=== PATIENT | male | born 1975 | race Caucasian/White ===

== ENCOUNTER 2024-10-15 02:03 | Emergency (ER) | payer MEDICARE, SELFPAY ==
[2024-10-15 02:04] VITALS: BP 142/96
[2024-10-15 02:16] VITALS: BMI 28.7
[2024-10-15 02:19] VITALS: BP 161/88
[2024-10-15 02:39] LABS: % Basophils 0.8 % (0-2); % Eosinophils 4.5 % (0-6); % Immature Granulocytes 0.4 % (0-0.5); % Lymphocytes 17.3 % (20.5-51.1); % Monocytes 8.3 % (1.7-9.3); % Neutrophils 68.7 % (42.2-75.2); Absolute Basophils 0.1 10^3/uL (0-0.2); Absolute Eosinophils 0.5 10^3/uL (0-0.7); Absolute Lymphocytes 1.9 10^3/uL (1.2-3.4); Absolute Monocytes 0.9 10^3/uL (0.1-0.6); Absolute Neutrophils 7.5 10^3/uL (1.4-6.5); Hematocrit 39.9 % (39.0-52.0); Hemoglobin 13.6 g/dL (13.0-18.0); Mean Corp Hgb Conc. 34.1 g/dL (33.0-37.0); Mean Corpuscular Volume 82.3 fL (80.0-94.0); Mean Platelet Volume 9.2 fL (7.4-10.4); Nucleated Red Blood Cells % 0 % (-); Platelet Count 328 10^3/uL (130-400); Red Blood Cell Count 4.85 10^6/uL (4.70-6.10); Red Cell Dist. Width 13.2 % (11.5-14.5); White Blood Cell Count 10.9 10^3/uL (4.8-10.8)
--- NOTE | 2024-10-15 02:55 | ED.GENMED ---
History of Present Illness
General
Chief Complaint: Headache
Source: patient
Time Seen by Provider: 10/15/24 02:11
Nursing documentation reviewed up to this point in time: agreed with
History of Present Illness
History of Present Illness:
49-year-old male presents to the emergency department with headache. He states that he is weaning himself off Adderall and clonazepam. He states he does this once every for 5 years. He typically gets headaches when he weans himself off these
medications. Patient also states that he has left groin pain he was evaluated at [facility] and is due to see urology for this pain. Patient denies fever, chills, nausea or vomiting. States that he does get migraine headaches and this is not the worst
headache of his life. States that the headache came on gradually. It is similar to his previous headaches
Past History
Past History
ED Past Medical History: Asthma, HTN, Psychiatric (anxiety, Depression) and Other (Cardiomyopathy, Urinary urgency and frequency); Negative Hypercholesterolemia or NIDDM
ED Past Surgical History: Orthopedic (Lumbar fusion, Lumbar Laminectomy X 3)
Social History
Tobacco: Other (CBD )
Alcohol: None
Personal:
Living: alone
Review of Systems
Review of Systems
Allergies reviewed?: Yes
All Other Systems: ROS reviewed and negative except as documented in HPI and ROS
Constitutional: Reports no symptoms
EENT: Reports no symptoms
Respiratory: Reports no symptoms
Cardiac: Reports no symptoms
ABD/GI: Reports abdominal pain; Denies nausea or vomiting
: Reports no symptoms
Musculoskeletal: Reports no symptoms
Skin: Reports no symptoms
Neurological: Reports headache
Endocrine: Reports no symptoms
Hematologic/Lymphatic: Reports no symptoms
Psychiatric: Reports anxiety
Phy Exam
General Physical Exam
General Presentation: well appearing and no apparent distress
General Skin: warm and dry
General Habitus: normal
General Mental: alert
General Hydration: appears well hydrated
ENT Exam
ENT Exam: EOMI, pharynx normal, neck supple and normocephalic
Eye Exam
Eye Exam: PERRL, cornea clear and conjunctiva normal
Cardiovascular Exam
Cardiovascular Exam: regular rate/rhythm, no edema, no murmur and normal peripheral pulses
Pulmonary Exam
Pulmonary Exam: lungs clear, no respiratory distress, no rales, no crackles, no rhonchi, no stridor, no wheezing and no cough
Gastrointestinal Exam
Gastrointestinal Exam: normal bowel sounds, non tender, soft, no organomegaly, no pulsatile mass and non distended
Neurological Exam
Neurological Exam: alert, oriented x3, no motor deficits and speech normal
Musculoskeletal Exam
Musculoskeletal Exam: full ROM, no edema and other (Left-sided groin hernia. There is no evidence of incarceration. Patient does have a minute defect. Will recommend surgery.)
Skin Exam
Skin Exam: normal color, warm/dry, no rash and no petechia
Psychiatric Exam
Psychiatric Exam: normal mood/affect
Course
Orders/Labs/Results
Orders:
Orders
10/15/24 02:27
Complete Blood Count/With Diff Urgent
Comprehensive Metabolic Panel Urgent
Lactic Acid Urgent
PTT Urgent
Prothrombin Time Urgent
10/15/24 02:53
0.9% Sodium Chloride 1000 ml [Nss] 1,000 ml IV BOLUS
Dexamethasone Sod Phosphate [Decadron] 10 mg IV NOW STA
Diphenhydramine [Benadryl] 25 mg IV NOW STA
Ketorolac [Toradol] 15 mg IV NOW STA
Metoclopramide [Reglan] 10 mg IV NOW STA
Abnormal Lab Results
10/15/24
02:27
WBC 10.9 H 10^3/uL
(4.8-10.8)
Absolute Neuts (auto) 7.5 H 10^3/uL
(1.4-6.5)
Absolute Monos (auto) 0.9 H 10^3/uL
(0.1-0.6)
Lymphocytes % 17.3 L %
(20.5-51.1)
Glucose 105 H mg/dl
(70-99)
10/15/24 02:27
10/15/24 02:27
Vital Signs
Initial and Last Documented VS:
Initial Vital Signs
Temp Pulse Resp BP Pulse Ox
97.7 F 90 20 142/96 98
10/15/24 02:04 10/15/24 02:04 10/15/24 02:04 10/15/24 02:04 10/15/24 02:04
Last Documented Vital Signs
Temp Pulse Resp BP Pulse Ox
97.7 F 87 19 142/83 100
10/15/24 02:04 10/15/24 05:00 10/15/24 05:00 10/15/24 05:00 10/15/24 05:00
*Critical Care Note
Total Time (30-74mins, 75-104mins- exclusive of procedures): Not Applicable
Update Note
Update Note:
Patient asleep before getting any pain medication
Awoke patient around 5:20 AM and patient states that his symptoms had improved. He still did not receive any pain medication.
Hernia is being evaluated at [facility].
Patient to be discharged home. We did discuss return to ER instructions with patient.
ED Attending Note
-
Portions of this chart may have been created with voice recognition software.� Occasional wrong word or��sound alike� substitutions may have occurred due to the inherent limitations of voice recognition software.
Discharge Plan
Departure
Patient Disposition: Home (Routine Discharge)
Date of Disposition: 10/15/24
Time of Disposition: 05:25
Patient with high blood pressure during this ER visit?: No
Discharge Problem:
Headache, Chronic pain of left groin
Instructions: Groin hernias, Migraines (DC), BLOOD PRESSURE
Prescriptions:
No Action
dextroamphetamine-amphetamine [Adderall] 30 mg Tablet
30 mg PO BID
clonazepam 2 mg Tablet
2 mg PO BID
Referrals:
UNKNOWN - PT DOES,NOT KNOW [Family Provider] -
Activity Restrictions/Additional Instructions:
It was a pleasure meeting you and taking part in your care. We hope for your continued healing and wellness.
Please read discharge instructions in their entirety. However, they are for general education and may not describe your exact diagnosis at discharge. Information on your ER visit and medical conditions were discussed with you along with appropriate
follow up information...
If indicated, please take your medications as instructed and indicated on discharge paperwork.
Please schedule a follow up appointment as directed. Call to schedule an appointment
Please return to the emergency department with ANY change in, persisting, or worsening of symptoms. If any of your symptoms do not improve, or persist, or become more severe within 6-12 hours, please return to the emergency department for further
care.
Please return to the emergency department if you develop a headache, neck pain/stiffness, fever greater than 100.4F, chest pain, shortness of breath, persistent nausea, vomiting, slurred speech, difficulty walking, numbness/tingling, weakness, signs
of infection or any other symptoms that are worrisome to you.
If you have any questions or concerns please do not hesitate to call the Hospital at
Interventions
Interventions:
*Risk Screen - Suicide Last Done: 10/15/24 02:04
*General Assessment Last Done: 10/15/24 02:17
*Neglect/Abuse Screening Last Done: 10/15/24 02:04
*ED- Fall Risk Assessment Last Done: 10/15/24 02:15
*ED COVID-19 Vaccine History Last Done: 10/15/24 02:15
ED- Neurological Assessment Last Done: 10/15/24 02:24
Discharge Date and Time
Print Language: LITHUANIAN
[2024-10-15 03:00] VITALS: BP 147/78
[2024-10-15 03:00] LABS: INR 0.94; Lactic Acid 0.7 mmol/L (0.7-2.0); PT 12.8 Sec (11.4-14.6)
[2024-10-15 03:01] LABS: ALT (SGPT) 36 U/L (0-50); APTT 31.9 Sec (23.4-35.0); AST (SGOT) 53 U/L (17-59); Albumin 4.5 g/dl (3.5-5.0); Alkaline Phosphatase 87 U/L (38-126); Blood Urea Nitrogen 20 mg/dl (9-20); Calcium 9.3 mg/dl (8.4-10.2); Carbon Dioxide 28 mmol/L (22-30); Chloride 107 mmol/L (98-107); Estimated Creatinine Clearance 111 ml/min; Glucose 105 mg/dl (70-99); Potassium 4.9 mmol/L (3.5-5.1); Sodium 143 mmol/L (135-145); Total Bilirubin 0.6 mg/dl (0.2-1.3); eGFR > 60.00
[2024-10-15] MEDS: NSS 1000 IV (03:05)
[2024-10-15] MEDS: BENADRYL 25 MG IV (03:07)
[2024-10-15] MEDS: TORADOL 15 MG IV (03:08)
[2024-10-15] MEDS: REGLAN 10 MG IV (03:09)
[2024-10-15] MEDS: DECADRON 10 MG IV (03:10)
[2024-10-15 04:00] VITALS: BP 151/86
[2024-10-15 05:00] VITALS: BP 142/83
== END 2024-10-15 05:47 | disposition home or self-care (01) ==
LOC: EMR 02:03
PROVIDERS: EMERGENCY PHYSICIAN Student in an Organized Health Care Education/Training Program
DX: R51.9 Headache, unspecified (principal); G89.29 Other chronic pain; R10.32 Left lower quadrant pain; J45.909 Unspecified asthma, uncomplicated; I10 Essential (primary) hypertension; F41.9 Anxiety disorder, unspecified; I42.9 Cardiomyopathy, unspecified; R39.15 Urgency of urination
CPT/HCPCS: 99283; 96374; 96375; 96361; 80053; 83605; 85025; 85610; 85730

== ENCOUNTER 2024-10-29 00:23 | Emergency (ER) | payer MEDICARE, SELFPAY ==
[2024-10-29 00:25] VITALS: BP 146/97
[2024-10-29 01:00] VITALS: BMI 31.6
[2024-10-29] MEDS: NSS 1000 IV (01:06)
[2024-10-29] MEDS: TORADOL 15 MG IV ×2 (01:06→02:11)
[2024-10-29] MEDS: REGLAN 10 MG IV (01:07)
[2024-10-29] MEDS: BENADRYL 25 MG IV (01:08)
--- NOTE | 2024-10-29 01:09 | ED.GENMED ---
History of Present Illness
General
Chief Complaint: Headache
Source: patient
Exam Limitations: none
Time Seen by Provider: 10/29/24 00:32
Nursing documentation reviewed up to this point in time: agreed with
History of Present Illness
History of Present Illness:
49-year-old male with past medical history of hypertension, migraine, anxiety, depression, presents emergency department today with concerns of a right sided headache. Patient reports that this has been going on for the past few days associated
with nausea and photophobia. Patient states that this is of the same character of his typical headaches but states that the pain is more severe and in that sense is unlike other headaches he has had. He denies any neck pain with this. Patient
reports he is traveling to [place] tomorrow and he usually gets relief with Excedrin but states that this has not been helping. Patient states that he usually responds well to the emergency department with Toradol and Benadryl. Patient states
that he did take a dose of marijuana a few hours ago which seemed to help with the pain but not the nausea. He denies trauma to the head or neck, denies any loss of consciousness. Denies any dizziness or lightheadedness. Denies any fevers. He
denies any chest pain or shortness of breath. He denies any upper extremity or lower extremity paresthesias or weakness. Patient states he has been evaluated by a neurologist in the past few days aches and has received an MRI of his brain in the
past which was normal.
Past History
Past History
ED Past Medical History: Asthma, HTN, Psychiatric (anxiety, Depression) and Other (Cardiomyopathy, Urinary urgency and frequency); Negative Hypercholesterolemia or NIDDM
ED Past Surgical History: Orthopedic (Lumbar fusion, Lumbar Laminectomy X 3)
Social History
Tobacco: Other (CBD )
Alcohol: None
Personal:
Living: alone
Review of Systems
Review of Systems
All Other Systems: ROS reviewed and negative except as documented in HPI and ROS
Phy Exam
Physical Exam
Physical Exam:
General: Patient is well appearing and in no acute distress; non-toxic
Skin: Warm and dry, no rashes or lesions
Head: Normocephalic, atraumatic. No temporal artery tenderness.
Eyes: Sclera non-icteric. EOMs intact.
Cardiac: Regular rate and rhythm, no murmurs
Peripheral Vascular: No lower extremity swelling or edema
Pulm: Normal respiratory effort
Neuro: CN II-XII intact, no focal neurologic deficits. Normal finger-nose, [id number] testing.
Psychiatric: Appropriate mood and affect.
Course
Orders/Labs/Results
Orders:
Orders
10/29/24 00:56
CT Head W/o Iv Contrast Urgent
Comment:
Reason For Exam: right sided headache, neck pain
0.9% Sodium Chloride 1000 ml [Nss] 1,000 ml IV BOLUS
Diphenhydramine [Benadryl] 25 mg IV NOW STA
Ketorolac [Toradol] 15 mg IV NOW STA
Metoclopramide [Reglan] 10 mg IV NOW STA
10/29/24 01:10
Complete Blood Count/With Diff Urgent
Comprehensive Metabolic Panel Urgent
10/29/24 02:04
Dexamethasone Sod Phosphate [Decadron] 10 mg IV NOW STA
Ketorolac [Toradol] 15 mg IV NOW STA
Ondansetron Injectable [Zofran] 4 mg IV NOW STA
Abnormal Lab Results
10/29/24
01:10
Abs Immat Gran (auto) 0.1 H 10^3/uL
(0-0.05)
Absolute Monos (auto) 1.2 H 10^3/uL
(0.1-0.6)
Immature Gran % 0.7 H %
(0-0.5)
Lymphocytes % 19.9 L %
(20.5-51.1)
Monocytes % 11.3 H %
(1.7-9.3)
Glucose 103 H mg/dl
(70-99)
AST 68 H U/L
(17-59)
ALT 105 H U/L
(0-50)
10/29/24 01:10
10/29/24 01:10
Vital Signs
Initial and Last Documented VS:
Initial Vital Signs
Temp Pulse Resp BP Pulse Ox
98.3 F 115 18 146/97 98
10/29/24 00:25 10/29/24 00:25 10/29/24 00:25 10/29/24 00:25 10/29/24 00:25
Last Documented Vital Signs
Temp Pulse Resp BP Pulse Ox
98.3 F 88 16 110/63 94
10/29/24 00:25 10/29/24 02:25 10/29/24 02:25 10/29/24 04:00 10/29/24 04:00
MDM/Problems Addressed
Differential Diagnosis Includes:
Differentials include migraine headache, subarachnoid hemorrhage, brain mass, tension headache, ocular migraine, GCA
MDM/Problems Addressed:
49-year-old male presents emergency department today with concerns of the migraine headache. He does have a history of migraines but states that this 1 feels more severe is not responding to Excedrin. He is requesting migraine cocktail.
Medications given. On reassessment, patient does have some improvement but is still requesting additional pain medication. Patient given a dose of Decadron for persistent migraine is also receiving a dose of Zofran help with nausea. Patient did
receive fluids. His CAT scan head is normal. He has no focal neurologic deficits. Reexamination, patient states that he still has a mild dull headache but states that his pain is much improved and would like to go home. This is reasonable,
patient is well-appearing. Patient stable for discharge. Return precautions discussed.
Chronic conditions affecting care:
Hypertension, anxiety, depression
*Pulse Oximetry
Patient hypoxic: no
*Critical Care Note
Total Time (30-74mins, 75-104mins- exclusive of procedures): Not Applicable
Data Reviewed
Review of Other/Old Records Reveals: Records (Reviewed ER physician documentation from 10/15/2024 patient seen for chronic pain of his groin) and Discharge Summary (The discharge summary is in [employer] to review)
Source: patient and records
ED Attending Note
-
Portions of this chart may have been created with voice recognition software.� Occasional wrong word or��sound alike� substitutions may have occurred due to the inherent limitations of voice recognition software.
Discharge Plan
Departure
Patient Disposition: Home (Routine Discharge)
Date of Disposition: 10/29/24
Time of Disposition: 03:57
Patient with high blood pressure during this ER visit?: Yes
Condition: Good
Discharge Problem:
Migraine headache
Instructions: Migraines (DC), BLOOD PRESSURE
Prescriptions:
No Action
dextroamphetamine-amphetamine [Adderall] 30 mg Tablet
30 mg PO BID
clonazepam 2 mg Tablet
2 mg PO BID
Referrals:
NONE,* [Family Provider] -
Activity Restrictions/Additional Instructions:
Please have your CMP repeat in one week with your primary care provider. Your liver enzymes were elevated today.
Your CT of the head was normal.
PLEASE RETURN EMERGENCY DEPARTMENT SHOULD YOU DEVELOP CHEST PAIN, SHORTNESS OF BREATH, ACUTE WORSENING OF YOUR SYMPTOMS, INTRACTABLE NAUSEA OR VOMITING, NECK PAIN, ABDOMINAL PAIN, YELLOWING OF THE SKIN OR EYES, WEAKNESS ON ONE SIDE OF THE BODY VS
THE OTHER, DIZZINESS, VISUAL LOSS, OR ANY OTHER SIGNS OR SYMPTOMS WORRISOME TO YOU.
Interventions
Interventions:
*Risk Screen - Suicide Last Done: 10/29/24 00:25
*General Assessment Last Done: 10/29/24 00:25
*Neglect/Abuse Screening Last Done: 10/29/24 00:25
*ED- Fall Risk Assessment Last Done: 10/29/24 00:59
*ED COVID-19 Vaccine History Last Done: 10/29/24 00:25
*Nursing Disposition Last Done: 10/29/24 04:03
ED- Neurological Assessment Last Done: 10/29/24 01:13
Discharge Date and Time
Discharge Date/Time: 10/29/24 04:12
Print Language: GEORGIAN
[2024-10-29 01:25] LABS: % Eosinophils 3.4 % (0-6); % Immature Granulocytes 0.7 % (0-0.5); % Lymphocytes 19.9 % (20.5-51.1); % Monocytes 11.3 % (1.7-9.3); % Neutrophils 63.7 % (42.2-75.2); Absolute Basophils 0.1 10^3/uL (0-0.2); Absolute Eosinophils 0.4 10^3/uL (0-0.7); Absolute Immature Granulocytes 0.1 10^3/uL (0-0.05); Absolute Monocytes 1.2 10^3/uL (0.1-0.6); Absolute Neutrophils 6.5 10^3/uL (1.4-6.5); Hematocrit 40.8 % (39.0-52.0); Hemoglobin 13.8 g/dL (13.0-18.0); Mean Corp Hgb Conc. 33.8 g/dL (33.0-37.0); Mean Corpuscular Hgb 27.5 pg (27.0-31.0); Mean Corpuscular Volume 81.4 fL (80.0-94.0); Mean Platelet Volume 8.5 fL (7.4-10.4); Nucleated Red Blood Cells % 0 % (-); Platelet Count 313 10^3/uL (130-400); Red Blood Cell Count 5.01 10^6/uL (4.70-6.10); White Blood Cell Count 10.2 10^3/uL (4.8-10.8)
[2024-10-29 01:38] LABS: ALT (SGPT) 105 U/L (0-50); AST (SGOT) 68 U/L (17-59); Albumin 4.1 g/dl (3.5-5.0); Alkaline Phosphatase 80 U/L (38-126); Blood Urea Nitrogen 18 mg/dl (9-20); Calcium 9.7 mg/dl (8.4-10.2); Carbon Dioxide 27 mmol/L (22-30); Chloride 105 mmol/L (98-107); Estimated Creatinine Clearance 114 ml/min; Glucose 103 mg/dl (70-99); Potassium 4.7 mmol/L (3.5-5.1); Sodium 140 mmol/L (135-145); Total Bilirubin 0.4 mg/dl (0.2-1.3); Total Protein 6.5 g/dl (6.3-8.2); eGFR > 60.00
[2024-10-29 02:00] VITALS: BP 129/83
[2024-10-29] MEDS: ZOFRAN 4 MG IV (02:11)
[2024-10-29] MEDS: DECADRON 10 MG IV (02:12)
[2024-10-29 03:00] VITALS: BP 117/68
[2024-10-29 04:00] VITALS: BP 110/63
== END 2024-10-29 04:12 | disposition home or self-care (01) ==
LOC: EMR 00:23
PROVIDERS: Physician Assistant; EMERGENCY PHYSICIAN Student in an Organized Health Care Education/Training Program
DX: G43.909 Migraine, unspecified, not intractable, without status migrainosus (principal); I10 Essential (primary) hypertension; F41.9 Anxiety disorder, unspecified; F32.A Depression, unspecified; J45.909 Unspecified asthma, uncomplicated
CPT/HCPCS: 99284; 96374; 96375; 96376; 96361; 70450; 80053; 85025